=== PATIENT | female | born 1975 | race Caucasian/White ===

== ENCOUNTER → 2020-04-23 13:43 | Outpatient (CLI) | payer OTHER, SELFPAY ==
[2020-04-24 22:54] LABS: COVID19 Sendout Not Detected (Not Detected)
== END ==
PROVIDERS: Visit Provider Physician Assistant
DX: Z11.59 Encounter for screening for other viral diseases (principal)
CPT/HCPCS: 87635

== ENCOUNTER 2020-04-26 09:15 | Day surgery (SDC) | payer OTHER, SELFPAY ==
--- NOTE | 2020-04-26 | PATH_ITS ---
[facility] Accession Number: [id number] . 01 Material submitted: . PART A: small bowel - SMALL BOWEL BIOPSY PART B: gastrointestinal site - GASTRIC BIOPSY PART C: gastrointestinal site - GASTRIC POLYP BIOPSY PART D: esophagus - ESOPHAGUS 39CM BIOPSY PART E: colon - RANDOM COLON BIOPSIES PART F: colon - CECAL POLYP PART G: colon - ASCENDING COLON POLYP . 02 Diagnosis: A. Small Bowel, Biopsy: Duodenal mucosa with increased intraepithelial lymphocytes and predominantly preserved villous architecture; please see comment. Negative for active inflammation, granulomata, dysplasia or malignancy. . B. Stomach, Biopsy: Antral and body mucosa with no diagnostic abnormality. No evidence of Helicobacter organisms on H/E stain. Negative for intestinal metaplasia. Negative for dysplasia and malignancy. . C. Gastric Polyp, Biopsy: Gastric hyperplastic polyp. No evidence of Helicobacter organisms on H/E stain. Negative for intestinal metaplasia, dysplasia or malignancy. . D. Esophagus at 39 cm, Biopsy: Squamocolumnar junctional mucosa with mild chronic inflammation. Negative for specialized intestinal metaplasia, dysplasia or malignancy. . E. Random Colon, Biopsies: Colonic mucosa with no diagnostic abnormality. Negative for active, chronic, and microscopic colitis. Negative for dysplasia and malignancy. . F. Cecal Polyp, Biopsy: Sessile serrated adenoma. . G. Ascending Colon Polyp, Biopsy: Small serrated lesion, consistent with early sessile serrated adenoma. [facility] 04/28/2020 [facility]1 Local . 02 Comment: A. The findings in the small bowel biopsy could support a diagnosis of celiac sprue in the appropriate clinical and serologic setting. The differential diagnosis also includes infection, drug injury (including angiotensin II receptor antagonists such as olmesartan), stasis, other protein allergies or autoimmunie disorders. . 02 Electronically signed: . Buddy Aldridge MD, PhD, Pathologist NPI- [id number] . 01 Gross description: . A. Received in formalin, labeled with the patient's name, MRN and small bowel biopsy, are three sterling-white irregular fragments of tissue ranging in size from 0.3 cm to 0.5 cm in greatest dimension. The specimen is entirely submitted in cassette A1. B. Received in formalin, labeled with the patient's name, MRN and gastric biopsy, are three sterling-pink irregular fragments of tissue ranging in size from 0.1 cm to 0.3 cm in greatest dimension. The specimen is entirely submitted in cassette B1. C. Received in formalin, labeled with the patient's name, MRN and gastric polyp, are three sterling-pink irregular fragments of tissue ranging in size from 0.2 cm to 0.5 cm in greatest dimension. The specimen is entirely submitted in cassette C1. D. Received in formalin, labeled with the patient's name, MRN and esophagus 39 cm biopsy, are three sterling-pink irregular fragments of tissue each measuring 0.4 cm in greatest dimension. The specimen is entirely in cassette D1. E. Received in formalin, labeled with the patient's name, MRN and random colon biopsies are seven sterling-white irregular fragments of tissue ranging in size from 0.2 cm to 0.5 cm in greatest dimension. The specimen is entirely submitted in cassette E1. F. Received in formalin, labeled with the patient's name, MRN and cecal polyp, are two sterling-white irregular fragments of tissue measuring 0.5 cm and 0.7 cm in greatest dimension. The entire specimen is submitted in cassette F1. G. Received in formalin, labeled with the patient's name, MRN and ascending colon polyp, is a 0.5 cm in greatest dimension sterling-white irregular fragment of tissue. The entire specimen is submitted in cassette G1. ([place] [place]10 [id number]) /MRV 04/27/2020 1435 Local . 02 Pathologist provided ICD-10: R19.7, K29.80, K31.7, K20.9, D12.0, D12.2 . 02 CPT . 330546, 743389, 545800, [id number], 807458, [id number], 276376 Performed at: 01 [place] [id number], [place] [id number] MD Grant Schaffer MD Phone: [phone] Performed at: 02 [facility] [address] [place] [id number] MD Mercedes Bethea MD Phone: [phone]
--- NOTE | 2020-04-26 09:52 | P.HP_ITS ---
History of Present Illness History of Present Illness Date Patient Seen: 04/26/20 Time Patient Seen: 09:52 Chief complaint: COLONOSCOPY/EGD W/POSS BX Narrative: Patient is a pleasant 44 year old female who presented for EGD and Colonoscopy. Patient was last evaluated by telehealth 04/19/[address] 04/06/2020 showed distal transverse colon wall thickening and gastric wall thickening. She has had persistent abdominal pain. She has had intermitte nt diarrhea. She has had N/V with conscious sedation in the past. Meds Home Medications and Allergies Home Medications Medication Instructions Recorded Confirmed Type No Known Home Medications 04/26/20 04/26/20 History Allergies Allergy/AdvReac Type Severity Reaction Status Date / Time Sulfa (Sulfonamide Allergy Mild Rash Verified 04/26/20 09:52 Antibiotics) Review of Systems Review of Systems ROS: Yes All systems reviewed with the patient and are negative except as otherwise documented Exam Const General: cooperative, healthy appearing, comfortable, well developed, well groomed and No acute distress Nutritional Appearance: average body habitus Orientation: alert, awake and oriented x3 HENMT Head: normal to inspection, normocephalic and atraumatic Resp Effort & Inspection: normal respiratory effort, able to speak in complete sentences and abnormal respiratory pattern Auscultation: clear to auscultation bilaterally Cardio Rate: regular rate Rhythm: regular rhythm Heart Sounds: S1 normal and S2 normal GI Palpation: soft Auscultation: normal bowel sounds Extrem Right lower extremity: no edema Left lower extremity: no edema Assessment & Plan Assessment & Plan narrative: 1. Abdominal pain 2. Abnormal imaging 3. Change in bowel habits with diarrhea EGD and Colonoscopy today, further recommendations will follow.
[2020-04-26 09:53] VITALS: BP 128/85; PULSE 74; RESP 16; TEMP 36.7; O2SAT 100; BMI 23.5
[2020-04-26] MEDS: SODIUM CHLORIDE 0.9% 1,000 ML 70 ML IV (10:05)
[2020-04-26] MEDS: ONDANSETRON 4 MG/2 ML INJ IV (10:30)
[2020-04-26] MEDS: LIDOCAINE 4% SOLN 50 ML 20 ML TOP (10:38)
[2020-04-26] MEDS: MIDAZOLAM 5 MG/5 ML VIAL IV (10:57)
[2020-04-26] MEDS: fentaNYL 250 MCG/5 ML INJ IV (10:59)
--- NOTE | 2020-04-26 11:18 | PM.OP.ENDO ---
Operative Date/Time/Diagnoses Date of procedure: 04/26/20 Time of procedure: 10:38 Procedure Notes Procedure in detail: Surgeon: She Rosenthal DO Procedure: Esophagogastroduodenoscopy with biopsy and colonoscopy with biopsy and polypectomy Preoperative diagnosis: 1. Abdominal pain 2. Abnormal CT scan 3. Change in Bowel Habits 4. Family history of colon cancer Postoperative diagnosis: 1. LA-A esophagitis at 39 cm -biopsied 2. Mild antral gastritis -biopsied 3. Gastric polyps -biopsied 4. 7 mm cecal polyp -resected and retrieved 5. 3 mm ascending colon polyp -resected and retrieved 6. Normal-appearing colon mucosa throughout the entire colon, biopsied 7. Normal terminal ileum 8. Mild internal hemorrhoids Medications: Conscious sedation using 9 mg IV of Midazolam and 175 mcg IV of Fentanyl (total for both procedures), lidocaine gargle Preanesthesia Assessment An H and P was performed/updated and the Px?s ASA class is 1. The procedure was discussed in detail with the patient. The potential risks and complications including infection, bleeding, missed lesions, perforation, need for surgery in case of perforation, prolonged hospital stay, and were explained. A brief question and answer period was allotted and once all questions were answered, informed consent was obtained. The patient was brought back to the procedure room and placed on standard monitoring. The patient?s vital signs were monitored continuously throughout the entire procedure. Prior to starting, a timeout was performed to confirm the patient?s identity, allergies, medications, and procedure. Procedure in detail The patient was placed in left lateral decubitus position and a bite block was inserted. The tip of the upper endoscope was placed into the mouth and advanced without difficulty under direct visualization into the esophagus. Esophagus: LA-A Esophagitis at 39cm -biopsied to rule out Pierre's esophagus Stomach: Mild antral gastritis -biopsied to rule out H pylori Gastric polyps scattered throughout the gastric body -biopsied Duodenum: Normal-appearing duodenum, biopsied to rule out celiac sprue Normal-appearing retroflexion After the upper endoscopy, preparations were made for the colonoscopy. Once adequate sedation was obtained a JUAN J was performed. The digital rectal examination did not reveal any palpable lesions. The tip of the colonoscope was placed in the anal canal and advanced with some difficulty due to tortuous colon, manual pressure was applied. The scope was advanced all the way to the cecum which was identified by the appendiceal orifice and the ileocecal valve. Colonoscopy findings: -7 mm polyp cecum removed with cold snare -3 mm polyp in the ascending colon removed with cold forceps -normal-appearing colon mucosa with random colon biopsies to rule out microscopic colitis -normal-appearing terminal ileum -grade 1 internal hemorrhoids The patient tolerated the procedure well and will be brought back to the recovery area to be discharged once criteria are met. The prep was judged to be good/excellent and adequate to identify polyps less than 5 mm. The withdrawal time was 10min. The total physician intraservice time was 38min. Complications There were no complications and estimated blood loss was minimal. Recommendations Resume previous diet Continue outpatient medications Follow-up pathology results Repeat colonoscopy after pathology results are reviewed Follow-up at our office as previously recommended An emergency contact number was given to the patient for any complications related to the procedure
[2020-04-26 11:23] VITALS: BP 98/66; PULSE 62; RESP 14; TEMP 36.4; O2SAT 100
[2020-04-26 11:28] VITALS: BP 97/60; PULSE 58; RESP 20; O2SAT 100
[2020-04-26 11:30] VITALS: TEMP 36.4
[2020-04-26 11:32] VITALS: BP 113/68; PULSE 63; RESP 14; O2SAT 100
== END 2020-04-26 12:03 | disposition home or self-care (01) ==
PROVIDERS: Referring Provider Student in an Organized Health Care Education/Training Program; Visit Provider Student in an Organized Health Care Education/Training Program
PROC: 0DJ08ZZ Inspection of Upper Intestinal Tract, Via Natural or Artificial Opening Endoscopic (ICD-10-PCS; CPT 43235; principal; 2020-04-26 10:30)
PROC: 0DJD8ZZ Inspection of Lower Intestinal Tract, Via Natural or Artificial Opening Endoscopic (ICD-10-PCS; CPT 45378; 2020-04-26 10:30)
DX: D12.2 Benign neoplasm of ascending colon (principal); K20.8 Other esophagitis; K64.0 First degree hemorrhoids; K29.80 Duodenitis without bleeding; K31.7 Polyp of stomach and duodenum; D12.0 Benign neoplasm of cecum
CPT/HCPCS: 45385; 45380; 43239; J2250; J2405; J3010

== ENCOUNTER → 2020-07-06 10:28 | Outpatient (CLI) | payer OTHER, SELFPAY ==
[2020-07-06 11:46] LABS: Add Manual Diff / Slide Review NO; Basophils Absolute Auto 0 /uL (0-100); Basophils Percent Auto 0.5 % (0-2); Eosinophils Absolute Auto 100 /uL (0-450); Eosinophils Percent Auto 2.6 % (2-4); Hematocrit 39.7 % (36-46); Hemoglobin 13.6 g/dL (12.0-16.0); Lymphocytes Absolute Auto 1000 /uL (1100-4500); Lymphocytes Percent Auto 18.4 % (25-40); Mean Corpuscular HGB Conc 34.3 % (30-36); Mean Corpuscular Hemoglobin 30.1 PG (26-34); Mean Corpuscular Volume 87.6 fL (80-100); Monocytes Absolute Auto 400 /uL (0-900); Monocytes Percent Auto 7.3 % (3-14); Neutrophils Absolute Auto 3900 /uL (1500-7000); Neutrophils Percent Auto 71.2 % (50-75); Platelet Count 241 X10^3/uL (150-400); Red Blood Cell Count 4.53 X10^6/uL (4.0-5.2); Red Cell Distribution Width 12.4 % (11.6-14.8); White Blood Cell Count 5.4 X10^3/uL (4.5-11.0)
[2020-07-06 12:16] LABS: Alanine Aminotransferase 20 IU/L (<35); Albumin 4.2 g/dL (3.5-5.0); Albumin Globulin Ratio 1.5 (1.0-2.8); Alkaline Phosphatase 38 U/L (38-126); Aspartate Aminotransferase 24 IU/L (14-36); BUN Creatinine Ratio 16.3 (6-22); Bilirubin Total 0.4 mg/dL (0.2-1.3); Blood Urea Nitrogen 7 mg/dL (7-17); Carbon Dioxide 30 mmol/L (22-32); Chloride 103 mmol/L (98-107); Estimated Glomerular Filt Rate > 60.0 mL/min (>60); Globulin 2.8 g/dL (1.7-4.1); Glucose 98 mg/dL (70-100); HEMOLYSIS < 15 (0-50); Potassium 4.2 mmol/L (3.4-5.1); Sodium 137 mmol/L (137-145)
[2020-07-06 12:46] LABS: Thyroid Stimulating Hormone 1.09 uIU/mL (0.47-4.68)
== END ==
PROVIDERS: Referring Provider Student in an Organized Health Care Education/Training Program; Visit Provider Student in an Organized Health Care Education/Training Program
DX: R93.3 Abnormal findings on diagnostic imaging of other parts of digestive tract (principal); R19.4 Change in bowel habit; R10.84 Generalized abdominal pain
CPT/HCPCS: 36415; 80053; 84443; 85025

== ENCOUNTER → 2020-07-14 15:02 | Outpatient (CLI) | payer OTHER, SELFPAY | PROVIDERS: Referring Provider Student in an Organized Health Care Education/Training Program; Visit Provider Student in an Organized Health Care Education/Training Program | DX: R93.3 Abnormal findings on diagnostic imaging of other parts of digestive tract (principal); R19.4 Change in bowel habit; R10.84 Generalized abdominal pain | CPT/HCPCS: 87177 ==